=== PATIENT | female | born 1985 | race Caucasian/White ===

== ENCOUNTER → 2018-10-31 | Outpatient (CLI) | payer OTHER ==
--- NOTE | 2018-10-31 09:34 | 2DMMODE ---
[facility] [address] [place] [address] 2 D/M-MODE ECHOCARDIOGRAM Name: MARIA ESTHER HOWARD Room #: REG [facility]#: [id number] Admission: 10/31/18 Attend Phys: Alex Hackett Discharge: Date of : 89 Report #: [id number] THIS REPORT FOR: //name// APPROVED REPORT Study performed: 10/31/2018 08:35:10 EXAM: Comprehensive 2D, Doppler, and color-flow Echocardiogram Patient Location: Out-Patient Status: routine BSA: 1.91 HR: 56 bpm BP: 118/80 mmHg Rhythm: NSR Other Information Study Quality: Good Indications Palpitations 2D Dimensions RVDd: 32.49 mm IVSd: 9.10 (7-11mm) LVOT Diam: 20.36 (18-24mm) LVDd: 43.94 mm PWd: 9.15 (7-11mm) Ascending Ao: 27.46 (22-36mm) LVDs: 27.68 (25-40mm) Aortic Root: 28.47 mm Volumes Left Atrial Volume (Systole) Single Plane 4CH: 44.66 mL Single Plane 2CH: 44.04 mL LA ESV Index: 26.00 mL/m2 Aortic Valve AoV Peak Raudel.: 1.18 m/s AO Peak Gr.: 5.57 mmHg LVOT Max P.46 mmHg LVOT Max V: 0.93 m/s FOZIA Vmax: 2.56 cm2 Mitral Valve E/A Ratio: 2.2 MV Decel. Time: 221.83 ms MV E Max Raudel.: 0.87 m/s [facility] [address] [place] [address] 2 D/M-MODE ECHOCARDIOGRAM Name: MARIA ESTHER HOWARD Room #: REG [facility]#: [id number] Admission: 10/31/18 Attend Phys: Alex Hackett Discharge: Date of : 89 Report #: [id number] MV A Raudel.: 0.40 m/s MV PHT: 64.33 ms IVRT: 76.12 ms Pulmonary Valve PV Peak Raudel.: 0.96 m/s PV Peak Gr.: 3.66 mmHg Pulmonary Vein P Vein S: 0.39 m/s P Vein A: 0.30 m/s P Vein D: 0.70 m/s P Vein A Dur.: 152.2 msec P Vein S/D Ratio: 0.56 Tricuspid Valve TR Peak Raudel.: 2.07 m/s RAP Estimate: 5.00 mmHg TR Peak Gr.: 17.12 mmHg PA Pressure: 22.00 mmHg Left Ventricle The left ventricle is normal size. There is normal LV segmental wall motion. There is normal left ventricular wall thickness. Left ventricular systolic function is normal. LVEF is 60-65%. The left ventricular diastolic function is normal. Right Ventricle The right ventricle is normal size. The right ventricular systolic function is normal. Atria The left atrium size is normal. The right atrium size is normal. Aortic Valve The aortic valve is normal in structure. Trace aortic regurgitation. There is no aortic valvular stenosis. Mitral Valve The mitral valve is normal in structure. Trace to mild mitral regurgitation. Tricuspid Valve The tricuspid valve is normal in structure. Trace to mild tricuspid regurgitation. Estimated PAP is 20-25mmHg. Pulmonic Valve The pulmonary valve is normal in structure. Trace pulmonic regurgitation. [facility] [address] [place] [address] 2 D/M-MODE ECHOCARDIOGRAM Name: MARIA ESTHER HOWARD [id number] Admission: 10/31/18 [facility]end [facility]: [facility] Discharge: Date of : 89 Report #: [id number] Great Vessels The aortic root is normal in size. The ascending aorta is normal in size. IVC is normal in size and collapses >50% with inspiration. Pericardium There is no pericardial effusion. <Conclusion> The left ventricle is normal size. There is normal left ventricular wall thickness. Left ventricular systolic function is normal. The left ventricular diastolic function is normal. The right ventricle is normal size. The left atrium size is normal. Trace aortic regurgitation. Trace to mild mitral regurgitation. Trace to mild tricuspid regurgitation. Estimated PAP is 20-25mmHg. <ELECTRONICALLY SIGNED> By: Flako Evans MD 10/31/18932 2 2 Flako Evans MD /INF
== END ==
LOC: CV 08:25
DX: I08.1 Rheumatic disorders of both mitral and tricuspid valves (principal)